=== PATIENT | male | born 1935 | race Caucasian/White ===

== ENCOUNTER 2023-06-12 10:51 | Inpatient (IN) ==
[2023-06-12] MEDS ORDERED: IOPAMIDOL 100 ML BOTTLE IV ONE (10:52)
[2023-06-12] MEDS ORDERED: DEXAMETHASONE 10 MG/ML VIAL IV ONE (11:23)
[2023-06-12] MEDS ORDERED: IPRATROPIUM/ALBUTEROL 3 ML AMPUL.NEB NEB ONE (11:27)
[2023-06-12 12:39] LABS: Basophils # (Auto) 0.04 K/mcL (0.00-0.30); Basophils % (Auto) 0.4 % (0.0-2.0); Eosinophils # (Auto) 0 K/mcL (0.00-0.70); Eosinophils % (Auto) 0 % (0.0-7.0); Hematocrit 34.2 % (40.1-51.0); Lymphocytes # (Auto) 1.35 K/mcL (1.50-4.80); Lymphocytes % (Auto) 14.9 % (15.5-49.0); Mean Cell Volume 105.2 fL (80.0-100.0); Mean Corpuscular HGB Conc 32.2 g/dL (31.0-36.0); Mean Platelet Volume 10.1 fL (8.8-12.5); Monocytes # (Auto) 1.15 K/mcL (0.10-0.90); Monocytes % (Auto) 12.7 % (1.0-12.0); Neutrophils % (Auto) 71.7 % (38.0-78.0); Platelet Count 219 K/mcL (140-440); RBC 3.25 M/mcL (4.63-6.08); Red Cell Distribution Width 13.6 % (11.5-14.5); WBC 9.1 K/mcL (4.5-11.0)
[2023-06-12 12:45] LABS: ALT/SGPT 10 U/L (<40); AST/SGOT 30 U/L (<40); Albumin 3.6 gm/dL (3.2-5.2); Albumin/Globulin Ratio 1.3 (1.0-2.3); Alkaline Phosphatase 50 U/L (39-117); Bilirubin,Total 0.2 mg/dL (0.1-1.0); Blood Urea Nitrogen 13 mg/dL (8-23); Calcium 8.7 mg/dL (8.6-10.4); Carbon Dioxide 28 mmol/L (22-30); Chloride 102 mmol/L (96-108); Globulin 2.7 gm/dL (2.2-3.7); Glomerular Filtration Rate 59; Glucose 102 mg/dL (70-105)
[2023-06-12] MEDS ORDERED: ACETAMINOPHEN 500 MG TABLET PO ONE (15:31)
[2023-06-12 16:08] LABS: C-Reactive Protein 3.99 mg/dL (0.03-0.80)
[2023-06-12] MEDS ORDERED: IPRATROPIUM/ALBUTEROL 3 ML AMPUL.NEB NEB PRN (17:26)
[2023-06-12] MEDS ORDERED: POLYETHYLENE GLYCOL 3350 17 GM PACKET PO PRN (17:26)
[2023-06-12] MEDS ORDERED: POTASSIUM CHLORIDE 20 MEQ TABLET PO PRN ×2 (17:26)
[2023-06-12] MEDS ORDERED: SENNOSIDES 1 TABLET PO PRN (17:26)
[2023-06-12] MEDS ORDERED: AZITHROMYCIN 500 MG in DEXTROSE 5% IN WATER 250 ML IV SCH (17:26)
[2023-06-12] MEDS ORDERED: METOPROLOL TARTRATE 5 MG/5 ML VIAL IV PRN (17:26)
[2023-06-12] MEDS ORDERED: POTASSIUM CHLORIDE 40 MEQ in DEXTROSE 5% IN WATER 500 ML IV PRN (17:26)
[2023-06-12] MEDS ORDERED: ACETAMINOPHEN 325 MG TABLET PO PRN (17:26)
[2023-06-12] MEDS ORDERED: ONDANSETRON 4 MG/2 ML VIAL IV PRN (17:26)
[2023-06-12] MEDS ORDERED: REMDESIVIR 200 MG in 0.9 % SODIUM CHLORIDE 250 ML IV ONE (17:26)
[2023-06-12] MEDS ORDERED: MAGNESIUM SULFATE 2 GM/50 ML BAG IV PRN (17:26)
[2023-06-12 18:52] LABS: Appearance,Urine Clear (Clear); Bilirubin,Urine Negative (Negative); Color,Urine Yellow; Culture Indicated,Urine No; Glucose,Urine (UA) Negative (Negative); Ketones,Urine 15 mg/dL (Negative); Leukocyte Esterase,Urine Negative /uL (Negative); Nitrate,Urine Negative (Negative); Protein,Urine Negative (Negative); Urine Blood Negative ery/mcL (Negative); Urobilinogen,Urine Normal
[2023-06-12] MEDS: BUDESONIDE 0.5 MG/2 ML AMPUL.NEB NEB SCH (21:02)
[2023-06-12] MEDS: OLANZapine 5 MG TABLET PO SCH (21:15)
[2023-06-12] MEDS: DOCUSATE SODIUM 100 MG CAPSULE PO SCH (21:15)
[2023-06-12] MEDS: SIMVASTATIN 40 MG TABLET PO SCH (21:15)
[2023-06-12] MEDS: APIXABAN 5 MG TABLET PO SCH (21:15)
[2023-06-12] MEDS: MELATONIN 3 MG TABLET PO SCH (21:18)
[2023-06-12] MEDS: 0.9 % SODIUM CHLORIDE 10 ML SYRINGE IV SCH (21:39)
[2023-06-12] MEDS ORDERED: AZITHROMYCIN 250 MG TABLET PO ONE (23:18)
[2023-06-13] MEDS: 0.9 % SODIUM CHLORIDE 10 ML SYRINGE IV SCH ×3 (04:55→21:06)
[2023-06-13 06:21] LABS: Basophils # (Auto) 0.02 K/mcL (0.00-0.30); Basophils % (Auto) 0.3 % (0.0-2.0); Eosinophils # (Auto) 0 K/mcL (0.00-0.70); Eosinophils % (Auto) 0 % (0.0-7.0); Hematocrit 34.4 % (40.1-51.0); Hemoglobin 11.1 g/dL (13.7-17.5); Lymphocytes # (Auto) 1.12 K/mcL (1.50-4.80); Lymphocytes % (Auto) 16.2 % (15.5-49.0); Mean Cell Volume 104.2 fL (80.0-100.0); Mean Corpuscular HGB Conc 32.3 g/dL (31.0-36.0); Mean Platelet Volume 9.8 fL (8.8-12.5); Monocytes # (Auto) 1.02 K/mcL (0.10-0.90); Monocytes % (Auto) 14.8 % (1.0-12.0); Neutrophils % (Auto) 68.6 % (38.0-78.0); Platelet Count 207 K/mcL (140-440); Red Cell Distribution Width 13.6 % (11.5-14.5); WBC 6.9 K/mcL (4.5-11.0)
[2023-06-13 06:59] LABS: ALT/SGPT 13 U/L (<40); AST/SGOT 42 U/L (<40); Albumin 3.2 gm/dL (3.2-5.2); Albumin/Globulin Ratio 1.2 (1.0-2.3); Alkaline Phosphatase 45 U/L (39-117); Bilirubin,Direct < 0.2 mg/dL (0-0.3); Bilirubin,Total < 0.2 mg/dL (0.1-1.0); Blood Urea Nitrogen 14 mg/dL (8-23); Calcium 8.6 mg/dL (8.6-10.4); Carbon Dioxide 27 mmol/L (22-30); Chloride 105 mmol/L (96-108); Globulin 2.6 gm/dL (2.2-3.7); Glomerular Filtration Rate 79; Glucose 112 mg/dL (70-105); Lactate Dehydrogenase 198 U/L (135-225); Phosphorous 3.5 mg/dL (2.5-4.5); Triglycerides 43 mg/dL (<150); Uric Acid 4.3 mg/dL (2.5-8.0)
[2023-06-13] MEDS: APIXABAN 5 MG TABLET PO SCH ×2 (08:30→21:26)
[2023-06-13] MEDS: LEVOTHYROXINE 50 MCG TABLET PO SCH (08:30)
[2023-06-13] MEDS: DEXAMETHASONE 4 MG TABLET PO SCH (08:30)
[2023-06-13] MEDS: DOCUSATE SODIUM 100 MG CAPSULE PO SCH ×2 (08:30→21:26)
[2023-06-13] MEDS: OMEPRAZOLE 20 MG CAPSULE PO SCH (08:30)
[2023-06-13] MEDS: BUDESONIDE 0.5 MG/2 ML AMPUL.NEB NEB SCH ×2 (08:40→22:02)
[2023-06-13] MEDS: AZITHROMYCIN 250 MG TABLET PO SCH (10:54)
[2023-06-13] MEDS ORDERED: REMDESIVIR 100 MG in 0.9 % SODIUM CHLORIDE 250 ML IV SCH (14:00)
[2023-06-13] MEDS: MELATONIN 3 MG TABLET PO SCH (21:26)
[2023-06-13] MEDS: OLANZapine 5 MG TABLET PO SCH (21:26)
[2023-06-13] MEDS: SIMVASTATIN 40 MG TABLET PO SCH (21:27)
[2023-06-14] MEDS: 0.9 % SODIUM CHLORIDE 10 ML SYRINGE IV SCH ×3 (04:03→21:32)
[2023-06-14 07:32] LABS: C-Reactive Protein 4.11 mg/dL (0.03-0.80)
[2023-06-14 07:34] LABS: Blood Urea Nitrogen 19 mg/dL (8-23); Carbon Dioxide 28 mmol/L (22-30); Chloride 104 mmol/L (96-108); Glomerular Filtration Rate 79; Glucose 96 mg/dL (70-105)
[2023-06-14] MEDS: LEVOTHYROXINE 50 MCG TABLET PO SCH (07:35)
[2023-06-14] MEDS: OMEPRAZOLE 20 MG CAPSULE PO SCH (07:35)
[2023-06-14] MEDS: BUDESONIDE 0.5 MG/2 ML AMPUL.NEB NEB SCH ×2 (08:50→23:03)
[2023-06-14] MEDS: AZITHROMYCIN 250 MG TABLET PO SCH (09:11)
[2023-06-14] MEDS: DEXAMETHASONE 4 MG TABLET PO SCH (09:11)
[2023-06-14] MEDS: DOCUSATE SODIUM 100 MG CAPSULE PO SCH ×2 (09:12→21:32)
[2023-06-14] MEDS: APIXABAN 5 MG TABLET PO SCH ×2 (09:12→21:32)
[2023-06-14] MEDS: SIMVASTATIN 40 MG TABLET PO SCH (21:32)
[2023-06-14] MEDS: OLANZapine 5 MG TABLET PO SCH (21:32)
[2023-06-14] MEDS: MELATONIN 3 MG TABLET PO SCH (21:32)
[2023-06-15] MEDS: 0.9 % SODIUM CHLORIDE 10 ML SYRINGE IV SCH (04:00)
[2023-06-15] MEDS: LEVOTHYROXINE 50 MCG TABLET PO SCH (07:20)
[2023-06-15] MEDS: OMEPRAZOLE 20 MG CAPSULE PO SCH (07:20)
[2023-06-15] MEDS: DEXAMETHASONE 4 MG TABLET PO SCH (08:57)
[2023-06-15] MEDS: DOCUSATE SODIUM 100 MG CAPSULE PO SCH ×2 (08:57→08:59)
[2023-06-15] MEDS: APIXABAN 5 MG TABLET PO SCH (08:57)
[2023-06-15 09:20] LABS: Blood Urea Nitrogen 20 mg/dL (8-23); C-Reactive Protein 2.26 mg/dL (0.03-0.80); Calcium 9.5 mg/dL (8.6-10.4); Carbon Dioxide 29 mmol/L (22-30); Chloride 103 mmol/L (96-108); Glomerular Filtration Rate 75; Glucose 101 mg/dL (70-105)
[2023-06-15] MEDS: BUDESONIDE 0.5 MG/2 ML AMPUL.NEB NEB SCH (09:46)
== END 2023-06-15 10:15 | disposition swing bed (61) | DRG 177 ==
LOC: ED 10:51 → MEDSUR 16:47
PROVIDERS: ADMIT Internal Medicine; ATTEND Internal Medicine